=== PATIENT | female | born 1940 | race Caucasian/White ===

== ENCOUNTER 2016-04-28 05:56 | Day surgery (SDC) | payer MEDICARE, OTHER ==
[~2016-04-28] VITALS: Ht 154.9 cm; Wt 62.1 kg
[2016-04-28] MEDS ORDERED: ALPRAZOLAM0.5 MG PO (07:18)
[2016-04-28] MEDS ORDERED: SYMBICORT 160-1 INHA INH (07:18)
[2016-04-28] MEDS ORDERED: NITROSTAT 0.40.4 MG SL (07:19)
[2016-04-28] MEDS ORDERED: METOPROLOL SUC100 MG PO (07:20)
[2016-04-28] MEDS ORDERED: LEVOTHYROXINE75 MCG PO (07:20)
[2016-04-28] MEDS ORDERED: SIMVASTATIN20 MG PO (07:21)
[2016-04-28] MEDS ORDERED: OMEPRAZOLE20 M1 PO (07:21)
[2016-04-28] MEDS ORDERED: MONTELUKAST SOD10 MG PO (07:22)
[2016-04-28] MEDS ORDERED: PRO AIR INH INH (07:23)
[2016-04-29 06:06] LABS: HEMOGLOBIN 10.5 gm/dl (12.3-15.3); RED BLOOD COUNT 3.77 M/UL (4.00-5.10); WHITE BLOOD COUNT 7.7 K/UL (4.5-11.0)
[2016-04-29 06:10] LABS: BUN/CREATININE RATIO 14 (0-10)
[2016-04-30] MEDS ORDERED: NAPROXEN250 MG PO (11:33)
[2016-04-30] MEDS ORDERED: NORCO 7.5-3251 EACH PO (11:33)
[2016-04-30] MEDS ORDERED: MIRALAX17 GM PO (11:34)
== END 2016-04-30 12:16 | disposition home or self-care (01) ==
LOC: OR 05:56 → MED SURG 4 05:56 → OR 07:45 → MED SURG 4 13:12 → OR 04-30 12:16
PROVIDERS: Obstetrics & Gynecology
PROC: 0USG0ZZ Reposition Vagina, Open Approach (ICD-10-PCS; 2016-04-28)
PROC: 0TSD0ZZ Reposition Urethra, Open Approach (ICD-10-PCS; 2016-04-28)
PROC: 0UT97ZZ Resection of Uterus, Via Natural or Artificial Opening (ICD-10-PCS; principal; 2016-04-28 07:30)
PROC: 0UTC7ZZ Resection of Cervix, Via Natural or Artificial Opening (ICD-10-PCS; 2016-04-28 07:30)
DX: N72 Inflammatory disease of cervix uteri (principal); N81.3 Complete uterovaginal prolapse; R23.4 Changes in skin texture; N81.82 Incompetence or weakening of pubocervical tissue; J44.9 Chronic obstructive pulmonary disease, unspecified; E11.9 Type 2 diabetes mellitus without complications; N39.46 Mixed incontinence; F41.9 Anxiety disorder, unspecified; J45.909 Unspecified asthma, uncomplicated; E03.9 Hypothyroidism, unspecified; I10 Essential (primary) hypertension; K21.9 Gastro-esophageal reflux disease without esophagitis; E78.5 Hyperlipidemia, unspecified; Z98.51 Tubal ligation status; Z79.899 Other long term (current) drug therapy; Z88.6 Allergy status to analgesic agent; Z82.49 Family history of ischemic heart disease and other diseases of the circulatory system
CPT/HCPCS: 36415; 71020; 80048; 80053; 81001; 84439; 84443; 85025; 93005; C1769; C1771; J0690; J1100; J1650; J2250; J2270; J2405; J2710; J2795; J3010; J7030; J7120

== ENCOUNTER → 2021-04-22 | Emergency (ER) | payer MEDICARE, OTHER ==
[~2021-04-22] MED LIST: ALPRAZOLAM0.5 MG PO; HYDROCODONE-AC1 EACH PO; LEVOTHYROXINE75 MCG PO; METOPROLOL SUC100 MG PO; MIRALAX17 GM PO; MONTELUKAST SOD10 MG PO; NAPROXEN250 MG PO; NITROSTAT 0.40.4 MG SL; NORCO 7.5-3251 EACH PO; OMEPRAZOLE20 M1 PO; PRO AIR INH INH; SIMVASTATIN20 MG PO; SYMBICORT 160-1 INHA INH
== END | disposition home or self-care (01) ==
LOC: ER1 18:49
DX: S52.532A Colles' fracture of left radius, initial encounter for closed fracture (principal); I10 Essential (primary) hypertension; W19.XXXA Unspecified fall, initial encounter; Y92.009 Unspecified place in unspecified non-institutional (private) residence as the place of occurrence of the external cause
CPT/HCPCS: 29125; 73030; 73110; 99283